=== PATIENT | male | born 1970 | race Caucasian/White ===

== ENCOUNTER 2024-10-12 12:18 | Emergency (ER) | payer BC, SELFPAY ==
--- NOTE | ~2024-10-12 | XR_ITS ---
XR toe 1st LT min 2V Ordering provider: Yoselin Elias NP History: . 1st toe pain/no trauma . Comparison: None. FINDINGS: BONES: No acute fracture or dislocation. JOINT SPACES: Normal. SOFT TISSUES: Normal. IMPRESSION: No acute osseous abnormality. Reviewed, dictated and finalized at location A. [employer]
[2024-10-12 12:30] VITALS: BP 150/80; PULSE 74; RESP 18; TEMP 36.3; O2SAT 100
--- NOTE | 2024-10-12 12:38 | ED_ITS ---
HPI - Extremity Problem General Chief complaint: Extremity Injury, Lower Stated complaint: LT Foot 1st toe pain Time Seen by Provider: 10/12/24 12:45 Source: patient and RN notes reviewed Mode of arrival: ambulatory Limitations: no limitations History of Present Illness HPI Narrative: 54-year-old male presents with concern for redness, warmth, swelling, pain to the dorsal aspect of 1st digit of his left foot. Reports symptoms started yesterday morning. Reports he was at a hotel April before and may have stubbed the toe but it did not hurt the next day. Patient denies fever, body aches, chills, sweats. Denies any drainage from the area. He denies any bruising or open skin MD Complaint: extremity pain Related Data Home Medications ?Medication ?Instructions ?Recorded ?Confirmed ?Last Taken ?Type No Home Medications 10/12/24 10/12/24 Unknown History Allergies Allergy/AdvReac Type Severity Reaction Status Date / Time No Known Allergies Allergy Verified 10/12/24 12:28 Review of Systems Review of Systems: CONSTITUTIONAL: Denies malaise, chills, sweats, or fever. SKIN: Denies rash or itching, open skin, laceration, abrasion, bruising, drainage MUSCULOSKELETAL: Reports pain, swelling, redness, warmth to the 1st digit of the left foot NEUROLOGIC: Denies numbness, weakness All systems reviewed & are unremarkable except as noted in HPI and below PMFSH Comments At time of signature, agree with nursing past medical, surgical, social and family history. There is no relevant family history pertinent to the presenting complaint Exam Narrative: GENERAL: Well-appearing, well-nourished, and in no acute distress. HEAD: Normocephalic, atraumatic. EYES: PERRLA, conjunctivae clear NECK: Supple. CHEST: Speaks in full sentences. No respiratory distress. HEART: Regular rate and rhythm. Normal and equal peripheral pulses. EXTREMITIES: 1st digit of the left foot has grossly normal strength and sensation, grossly normal range of motion. Moderate edema, erythema, warmth noted to the DIP joint. No ecchymosis. 5Normal sensation with sensitivity to light touch and pain. Point tenderness to the D IP joint. No open wounds, no skin tenting, no devitalized tissue or atrophy, no trophic changes, no obvious deformity, alignment normal, nearby joints and structures intact. Distal pulses palpable and equal bilaterally, skin warm, dry, pink. Capillary refill less than 3 seconds. SKIN: Warm, dry, no rash. NEURO: Alert and oriented x3. PSYCH: Normal mood and affect Course Course Emergency Course: Explained to patient that symptoms are consistent with cellulitis versus is gout. Patient is very concerned about a fracture. I told the patient I would x-ray him to use his concerns. I then offered treatment solutions for gout versus cellulitis. Patient reports he does not want treatment for gout or cellulitis he just wants to make sure his toe is not broken. I advised him symptoms to watch out for if they worsen he needs to return for care. He verbalizes understanding of risk of not treating for cellulitis or gout. Anticipatory guidance given. Patient agrees to follow-up as directed and is aware of reasons to seek care at the emergency department. Portions of this record may have been created with voice recognition software Level of Care: Express Care Visit Vital Signs Vital signs: Vital Signs Temperature 97.3 F L 10/12/24 12:30 Pulse Rate 74 10/12/24 12:30 Respiratory Rate 18 10/12/24 12:30 Blood Pressure 150/80 H 10/12/24 12:30 Pulse Oximetry 100 10/12/24 12:30 Oxygen Delivery Room Air 10/12/24 12:30 Temperature 97.3 F L 10/12/24 12:30 Pulse Rate 74 10/12/24 12:30 Respiratory Rate 18 10/12/24 12:30 Blood Pressure 150/80 H 10/12/24 12:30 Pulse Oximetry 100 10/12/24 12:30 Oxygen Delivery Room Air 10/12/24 12:30 Reviewed. MDM - Extremity (Nontraumatic) Imaging Data My impression: Images reviewed, interpreted by radiologist, agree, see report. Radiologist's impression: XR toe 1st LT min 2V Ordering provider: Yoselin Elias NP History: . 1st toe pain/no trauma . Comparison: None. FINDINGS: BONES: No acute fracture or dislocation. JOINT SPACES: Normal. SOFT TISSUES: Normal. IMPRESSION: No acute osseous abnormality. Critical Care Time Critical Care Time Critical Care Time: No Discharge Plan Discharge Clinical Impression: Localized swelling of toe of left foot Patient Disposition: Home, Self-Care Condition: Stable Instructions: Cellulitis (ED), Gout (ED) Additional Instructions: Your x-ray is normal Your symptoms may be consistent with gout or cellulitis. You can take ibuprofen 100 mg 3 times a day for the next several days. If your symptoms persist, you develops a fever or have other concerns you do need to be re-evaluated. If you have any urgent symptoms should go to the emergency room Patient Language: Cambodian Prescriptions: No Action No Home Medications Follow-up/Referrals: PHYSICIAN,[employer] [Primary Care Provider] - Time of Disposition: 13:14
== END 2024-10-12 13:15 | disposition home or self-care (01) ==
PROVIDERS: Emergency Provider Nurse Practitioner
DX: R22.42 Localized swelling, mass and lump, left lower limb (principal)
CPT/HCPCS: 73660; 99213; G0463